=== PATIENT | female | born 1950 | race Caucasian/White ===

== ENCOUNTER 2024-03-24 05:28 | Emergency (ER) | payer OTHER, SELFPAY ==
[2024-03-24 05:30] VITALS: BP 162/84
--- NOTE | 2024-03-24 05:50 | EDRN ---
has cramps in R leg. Pt ambulates.
--- NOTE | 2024-03-24 06:30 | ED.GENMED ---
History of Present Illness
General
Chief Complaint: Musculo-Skeletal Complaint
Source: patient
Exam Limitations: none
Time Seen by Provider: 03/24/24 06:26
Travel History
Have you had any contact with someone who has COVID-19?: No
Do you have any symptoms of coronavirus? Fever > 100 degrees, chills, cough, shortness of breath, sore throat, loss of taste or smell, muscle aches, or headache?: No
History of Present Illness
History of Present Illness:
See MDM
Past History
Past History
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
ED Past Surgical History: Brain (Aneurysm coiling November 2019), Cholecystectomy and Other (liver transplant 2011)
Social History
Tobacco: Non-smoker
Personal:
Living: with family
Employment: Not employed
Family History
Family History: Other (Noncontributory)
Phy Exam
Physical Exam
Physical Exam:
See MDM
Course
Orders/Labs/Results
Orders:
Orders
03/24/24 06:30
Wrist, Right 3 Views [CR Wrist - Right Min 3 Views] Urgent
Comment:
Reason For Exam: Fall, R wrist pain
US Periph Venous LOWER Ext RT Urgent
Comment:
Reason For Exam: R calf pain
Vital Signs
Initial and Last Documented VS:
Initial Vital Signs
Temp Pulse Resp BP Pulse Ox
98 F 66 22 162/84 98
03/24/24 05:30 03/24/24 05:30 03/24/24 05:30 03/24/24 05:30 03/24/24 05:30
Last Documented Vital Signs
Temp Pulse Resp BP Pulse Ox
98 F 66 22 162/84 98
03/24/24 05:30 03/24/24 05:30 03/24/24 05:30 03/24/24 05:30 03/24/24 05:30
MDM/Problems Addressed
Differential Diagnosis Includes:
HPI and MDM Narrative:
73-year-old female presenting with right wrist pain and right calf pain. Patient had a fall 1 week ago and is worried because symptoms are still persistent. She thinks her right wrist is getting better but she is concerned about DVT in her right
leg. She denies any numbness or tingling
On exam, there is very mild tenderness to distal right radius. Will obtain x-ray. There is very mild tenderness to right calf without skin changes or edema. The distal extremity is otherwise neurovascularly intact. Will obtain ultrasound but
discussed likely musculoskeletal strain
Physical exam
General: Well appearing and non-toxic
HEENT: protecting airway
Neck: appears supple
CV: No evidence of cyanosis
Resp: No accessory muscle use
Abd: Non-distended
Extremities: No deformities. Mild tenderness to right distal radius. Mild tenderness right calf. Both extremities neurovascularly intact without skin changes or edema
Neuro: alert
Psych: Normal affect
Skin: Intact
Problems Addressed including Acute and Chronic Conditions affecting care:
1. Right wrist pain
Acuity: acute
Prognosis: stable
Details: Will obtain x-ray to rule out fracture
2. Right calf pain
Acuity: acute
Prognosis: stable
Details: Likely calf strain. Will obtain ultrasound rule DVT
Updates
Ultrasound negative for DVT. X-ray negative for fracture. Discussed return precautions
Differential Diagnosis (but not limited to): Calf strain, DVT, wrist fracture
Testing considered: Tib-fib x-ray but no bony tenderness
Drug therapy (if applicable): OTC meds, please see d/c instruction regarding Rx drugs
Amount and/or Complexity of Data Reviewed
Clinical info obtained from: Patient
External data reviewed: N/A
Labs I independently reviewed (but not limited to): N/A
Radiology: X-ray independently reviewed: Wrist x-ray negative for fracture
Pulse Ox: not hypoxic
EKG independently reviewed: N/A
Wood Cutter: N/A
Critical Care: N/A
Risk of Complication:
Social Determinants of health: Good social support
Discussed with other providers: N/A
Escalation of Care includes Admit/Obs: After being observed in the Emergency Department, pt stable for discharge.
Occasional wrong word or 'sound a like' substitutions may have occurred due to the inherent limitations of voice recognition software. Read the chart carefully and recognize, using context, where substitutions have occurred.
*Critical Care Note
Total Time (30-74mins, 75-104mins- exclusive of procedures): Not Applicable
ED Attending Note
-
Portions of this chart may have been created with voice recognition software.� Occasional wrong word or��sound alike� substitutions may have occurred due to the inherent limitations of voice recognition software.
Discharge Plan
Departure
Patient Disposition: Home (Routine Discharge)
Date of Disposition: 03/24/24
Time of Disposition: 07:41
Patient with high blood pressure during this ER visit?: Yes
Discharge Problem:
Strain of calf muscle
Instructions: Lower Extremity Muscle Strain (DC)
Prescriptions:
No Action
nifedipine 30 MG tablet extended release
30 mg PO DAILY
ergocalciferol (vitamin D2) 50,000 UNITS capsule
50,000 units PO AGUIRRE
mycophenolate sodium 360 MG tablet,delayed release (DR/EC)
720 mg PO BID
insulin detemir U-100 [Levemir FlexTouch U100 Insulin] 300 UNIT/3 ML insulin pen
48 unit SC HS
carvedilol 12.5 MG tablet
12.5 mg PO BID
pravastatin 40 MG tablet
40 mg PO DAILY
famotidine 20 MG tablet
20 mg PO DAILY
aspirin 81 MG tablet,chewable
81 mg PO DAILY
tacrolimus 0.5 MG capsule
0.5 mg PO BID
entecavir [Baraclude] 0.5 MG tablet
0.5 mg PO Q3D
loperamide 2 MG capsule
2 mg PO Q4HPRN PRN (Reason: diarrhea) 7 Days Qty: 30 0RF
dexamethasone 2 MG tablet
6 mg PO DAILY 7 Days Qty: 21 0RF
Rx Instructions:
next dose 5/1 AM
Referrals:
Genia Yun MD [Family Provider] -
Activity Restrictions/Additional Instructions:
Please return for any worsening symptoms.
You may return at any time if you have further concerns.
Please follow up with your doctor at the first available appointment, preferably this week.
Thank you for choosing [facility].
Interventions
Interventions:
*Risk Screen - Suicide Last Done: 03/24/24 05:30
*General Assessment Last Done: 03/24/24 05:44
*Neglect/Abuse Screening Last Done: 03/24/24 05:30
ED- Fall Risk Assessment Last Done: 03/24/24 05:44
*ED COVID-19 Vaccine History Last Done: 03/24/24 05:44
ED-Musculoskeletal Assessment Last Done: 03/24/24 05:44
Discharge Date and Time
Print Language: ROMANSH
[2024-03-24 08:15] VITALS: BP 167/83
== END 2024-03-24 08:15 | disposition home or self-care (01) ==
LOC: EMR 05:28
PROVIDERS: EMERGENCY PHYSICIAN Student in an Organized Health Care Education/Training Program; FAMILY PHYSICIAN Family Medicine
DX: S86.911A Strain of unspecified muscle(s) and tendon(s) at lower leg level, right leg, initial encounter (principal); W19.XXXA Unspecified fall, initial encounter; I12.9 Hypertensive chronic kidney disease with stage 1 through stage 4 chronic kidney disease, or unspecified chronic kidney disease; E11.22 Type 2 diabetes mellitus with diabetic chronic kidney disease; N18.9 Chronic kidney disease, unspecified; E78.00 Pure hypercholesterolemia, unspecified; Z79.4 Long term (current) use of insulin; Z90.49 Acquired absence of other specified parts of digestive tract; Z94.4 Liver transplant status
CPT/HCPCS: 99284; 73110; 93971

== ENCOUNTER 2024-12-15 21:43 | Emergency (ER) | payer OTHER, SELFPAY ==
[2024-12-15 21:47] VITALS: BP 148/82
[2024-12-15 22:15] LABS: % Eosinophils 1.8 % (0-6); % Immature Granulocytes 0.3 % (0-0.5); % Lymphocytes 43.4 % (20.5-51.1); % Monocytes 7.9 % (1.7-9.3); % Neutrophils 45.6 % (42.2-75.2); Absolute Basophils 0.1 10^3/uL (0-0.2); Absolute Eosinophils 0.1 10^3/uL (0-0.7); Absolute Lymphocytes 2.6 10^3/uL (1.2-3.4); Absolute Monocytes 0.5 10^3/uL (0.1-0.6); Absolute Neutrophils 2.8 10^3/uL (1.4-6.5); Hematocrit 43.6 % (37.0-47.0); Hemoglobin 14.2 g/dL (12.0-16.0); Mean Corp Hgb Conc. 32.6 g/dL (33.0-37.0); Mean Corpuscular Hgb 27.7 pg (27.0-31.0); Mean Corpuscular Volume 85.2 fL (81.0-99.0); Mean Platelet Volume 9.9 fL (7.4-10.4); Nucleated Red Blood Cells % 0 %; Platelet Count 192 10^3/uL (130-400); Red Blood Cell Count 5.12 10^6/uL (4.20-5.40); Red Cell Dist. Width 14.5 % (11.5-14.5)
[2024-12-15 22:35] LABS: ALT (SGPT) 14 U/L (0-35); AST (SGOT) 17 U/L (14-36); Albumin 3.7 g/dl (3.5-5.0); Alkaline Phosphatase 50 U/L (38-126); Blood Urea Nitrogen 18 mg/dl (7-17); Calcium 8.7 mg/dl (8.4-10.2); Carbon Dioxide 24 mmol/L (22-30); Chloride 101 mmol/L (98-107); Glucose 157 mg/dl (70-99); Magnesium 2.2 mg/dl (1.6-2.3); Potassium 4.2 mmol/L (3.5-5.1); Sodium 134 mmol/L (135-145); Total Bilirubin 1.1 mg/dl (0.2-1.3); Total Protein 6.6 g/dl (6.3-8.2); eGFR 36.34
[2024-12-15 22:39] LABS: Troponin I < 0.012 ng/ml
[2024-12-15 23:06] LABS: TSH Reflex To Free T4 1.83 uIU/ml (0.47-4.68)
[2024-12-16 01:45] VITALS: BMI 39.8
[2024-12-16 01:52] VITALS: BP 136/76
[2024-12-16 02:00] VITALS: BP 130/65
--- NOTE | 2024-12-16 02:06 | ED.GENMED ---
History of Present Illness
General
Chief Complaint: Dizziness
Source: patient
Exam Limitations: none
Time Seen by Provider: 12/16/24 01:31
Nursing documentation reviewed up to this point in time: agreed with
History of Present Illness
History of Present Illness:
74-year-old female with history of cardiomyopathy, HTN, HLD, IDDM, liver transplant 2012, brain aneurysm and fistula presents from home for low heart rate.
Patient was diagnosed with flu 4 days ago with N/V/D. Last emesis 3 days ago last diarrhea 2 days ago. Yesterday a.m. she had an episode where she felt lightheaded and faint but did not fall and did not faint, she held onto the counter to steady
herself and she had several similar episodes throughout the day. This morning because she felt lightheaded/dizzy she put her pulse ox on and states that it read '40' so she and her grandson with whom she lives was researching what could cause a low
heart rate and she was concerned she was dehydrated.
She held off on taking her Carvedilol.
She spoke with PCP on the phone today and told to hold Carvedilol again today and call her repair servicer tomorrow.
Past History
Past History
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
ED Past Surgical History: Brain (Aneurysm coiling November 2019), Cholecystectomy and Other (liver transplant 2011)
Social History
Tobacco: Non-smoker
Personal:
Living: with family
Employment: Not employed
Family History
Family History: Other (Noncontributory)
Review of Systems
Review of Systems
Allergies reviewed?: Yes
All Other Systems: ROS reviewed and negative except as documented in HPI and ROS
Constitutional: Denies fever or fatigue
EENT: Denies sore throat
Respiratory: Denies trouble breathing
Cardiac: Denies chest pain, diaphoresis, palpitations or syncope
ABD/GI: Denies abdominal pain, nausea, vomiting or diarrhea
: Denies dysuria, frequency or difficulty voiding
Skin: Denies no symptoms
Neurological: Reports dizzy (episodic lightheadedness/dizziness); Denies headache, weakness or numbness
Phy Exam
Physical Exam
Physical Exam:
GENERAL: No acute distress. A&Ox3.
CONSTITUTIONAL: Afebrile.
EYES: clear, conjunctivae normal
ENMT: moist mucus membranes, Pharynx nl
RESPIRATORY: Regular respirations, nonlabored, lungs clear.
CARDIOVASCULAR: Regular rate and rhythm, no murmurs, no rubs. Heart rate 50s and 60s on the bedside monitor, sinus
GI: Soft, nontender, normal BS
MUSCULOSKELETAL: Moves with ease. Well perfused. No edema
SKIN: Warm, dry, pink
PSYCH: Normal mood and affect. Well kept, interactive and appropriate
NEUROLOGIC: Awake, alert and oriented. No focal neurological deficits
Course
Orders/Labs/Results
Orders:
Orders
12/15/24 21:51
Electrocardiogram (*1) Urgent
Reason for Study: Vertigo / Dizzy
EKG- Treatment ONCE
12/15/24 22:06
Complete Blood Count/With Diff Urgent
Comprehensive Metabolic Panel Urgent
Magnesium Urgent
TSH Reflex To Free T4 Urgent
Troponin I Urgent
12/16/24 02:17
Orthostatic VS- Treatment ONCE
Abnormal Lab Results
12/15/24
22:06
MCHC 32.6 L g/dL
(33.0-37.0)
Sodium 134 L mmol/L
(135-145)
BUN 18 H mg/dl
(7-17)
Creatinine 1.5 H mg/dL
(0.6-1.0)
Glucose 157 H mg/dl
(70-99)
12/15/24 22:06
12/15/24 22:06
Vital Signs
Initial and Last Documented VS:
Initial Vital Signs
Temp Pulse Resp BP Pulse Ox
98.3 F 59 20 148/82 99
12/15/24 21:47 12/15/24 21:47 12/15/24 21:47 12/15/24 21:47 12/15/24 21:47
Last Documented Vital Signs
Temp Pulse Resp BP Pulse Ox
98.3 F 54 13 124/68 95
12/15/24 21:47 12/16/24 02:26 12/16/24 02:26 12/16/24 02:26 12/16/24 02:24
MDM/Problems Addressed
Differential Diagnosis Includes:
dehydration, residual flu symptoms, hypoglycemia,. side effect from Carvedilol
MDM/Problems Addressed:
74-year-old female with history of cardiomyopathy, HTN, HLD, IDDM, liver transplant 2012, brain aneurysm and fistula presents from home for low heart rate.
Patient was diagnosed with flu 4 days ago with N/V/D. Last emesis 3 days ago last diarrhea 2 days ago. Yesterday a.m. she had an episode where she felt lightheaded and faint but did not fall and did not faint, she held onto the counter to steady
herself and she had several similar episodes throughout the day. This morning because she felt lightheaded/dizzy she put her pulse ox on and states that it read '40' so she and her grandson with whom she lives was researching what could cause a low
heart rate and she was concerned she was dehydrated.
She held off on taking her Carvedilol.
She spoke with PCP on the phone today and told to hold Carvedilol again today and call her repair servicer tomorrow.
EKG NSR
CBC normal
CMP no clinically significant abnormality. Consistent with her chronic CKD
Troponin normal
TSH normal
2:00 a.m.
BP 130/65 HR 54
Orthostatics neg
Pt drank 500 ml castro pedro, no need for IVFs
2:45 a.m.
entire stay, HR went to 49 once, has been 50's and 60's at all other times
Orthostatics neg
Pt stable for discharge. To contact repair servicer tomorrow to discuss today's visit.
*EKG
EKG Intrepretation Date: 12/16/24
Interpretation: normal
Heart Rate: 62
Rate: normal
Rhythm: sinus
[place]: normal axis
Interval: normal interval
QRS Pattern: normal QRS
Ischemia: no ischemia
*Critical Care Note
Total Time (30-74mins, 75-104mins- exclusive of procedures): Not Applicable
ED Attending Note
-
Portions of this chart may have been created with voice recognition software.� Occasional wrong word or��sound alike� substitutions may have occurred due to the inherent limitations of voice recognition software.
Discharge Plan
Departure
Patient Disposition: Home (Routine Discharge)
Date of Disposition: 12/16/24
Time of Disposition: 02:37
Patient with high blood pressure during this ER visit?: No
Condition: Good
Discharge Problem:
Mild dehydration, Episodic lightheadedness
Instructions: Why Water Is Important to Health, Dehydration in adults - ED discharge instructions, Dizziness in adults - ED discharge instructions
Prescriptions:
No Action
nifedipine 30 MG tablet extended release
30 mg PO DAILY
ergocalciferol (vitamin D2) 50,000 UNITS capsule
50,000 units PO AGUIRRE
mycophenolate sodium 360 MG tablet,delayed release (DR/EC)
720 mg PO BID
insulin detemir U-100 [Levemir FlexTouch U100 Insulin] 300 UNIT/3 ML insulin pen
48 unit SC HS
carvedilol 12.5 MG tablet
12.5 mg PO BID
pravastatin 40 MG tablet
40 mg PO DAILY
famotidine 20 MG tablet
20 mg PO DAILY
aspirin 81 MG tablet,chewable
81 mg PO DAILY
tacrolimus 0.5 MG capsule
0.5 mg PO BID
entecavir [Baraclude] 0.5 MG tablet
0.5 mg PO Q3D
loperamide 2 MG capsule
2 mg PO Q4HPRN PRN (Reason: diarrhea) 7 Days Qty: 30 0RF
dexamethasone 2 MG tablet
6 mg PO DAILY 7 Days Qty: 21 0RF
Rx Instructions:
next dose 5/1 AM
Referrals:
Arnulfo Reis MD [Active] - Tomorrow
Genia Yun MD [Family Provider] -
Activity Restrictions/Additional Instructions:
As we discussed, nothing worrisome in your workup here tonight. You may be mildly dehydrated. Drink at least six 8 ounce glasses of water/fluid daily
Your symptoms are most likely due to your recent flu diagnosis
Your heart rate here tonight has been in the 50s and 60s the entire time
Your EKG is normal
Your blood work shows nothing worrisome. Discuss your creatinine level with your doctor.
Call your repair servicer tomorrow and discuss today's visit.
Interventions
Interventions:
*Risk Screen - Suicide Last Done: 12/16/24 02:52
*General Assessment Last Done: 12/15/24 21:47
*Neglect/Abuse Screening Last Done: 12/16/24 02:52
ED- Fall Risk Assessment Last Done: 12/16/24 01:46
*Nursing Disposition Last Done: 12/16/24 02:52
ED- Neurological Assessment Last Done: 12/16/24 01:46
ED- Cardiac Assessment Last Done: 12/16/24 01:58
ED Swallowing Screen Last Done: 12/16/24 01:46
Discharge Date and Time
Discharge Date/Time: 12/16/24 02:53
Print Language: SPANISH
[2024-12-16 02:22] VITALS: BP 121/79
[2024-12-16 02:24] VITALS: BP 133/84
[2024-12-16 02:25] VITALS: BP 121/79; BP 124/68; BP 133/84; PULSE 56; PULSE 58
[2024-12-16 02:26] VITALS: BP 124/68
== END 2024-12-16 02:53 | disposition home or self-care (01) ==
LOC: EMR 21:43
PROVIDERS: Emergency Medicine; EMERGENCY PHYSICIAN Student in an Organized Health Care Education/Training Program; FAMILY PHYSICIAN Family Medicine
DX: E86.0 Dehydration (principal); R42 Dizziness and giddiness; I12.9 Hypertensive chronic kidney disease with stage 1 through stage 4 chronic kidney disease, or unspecified chronic kidney disease; E11.22 Type 2 diabetes mellitus with diabetic chronic kidney disease; N18.9 Chronic kidney disease, unspecified; E78.00 Pure hypercholesterolemia, unspecified; I42.9 Cardiomyopathy, unspecified; Z79.4 Long term (current) use of insulin; Z94.4 Liver transplant status; Z90.49 Acquired absence of other specified parts of digestive tract
CPT/HCPCS: 99284; 80053; 83735; 84443; 84484; 85025; 93005

== ENCOUNTER 2025-01-12 20:59 | Emergency (ER) | payer OTHER, SELFPAY ==
[2025-01-12 21:01] VITALS: BP 132/81
[2025-01-12 21:14] LABS: % Basophils 0.7 % (0-2); % Eosinophils 1.7 % (0-6); % Immature Granulocytes 0.5 % (0-0.5); % Lymphocytes 26.9 % (20.5-51.1); % Monocytes 7.4 % (1.7-9.3); % Neutrophils 62.8 % (42.2-75.2); Absolute Basophils 0.1 10^3/uL (0-0.2); Absolute Eosinophils 0.2 10^3/uL (0-0.7); Absolute Immature Granulocytes 0.1 10^3/uL (0-0.05); Absolute Lymphocytes 2.5 10^3/uL (1.2-3.4); Absolute Monocytes 0.7 10^3/uL (0.1-0.6); Absolute Neutrophils 5.9 10^3/uL (1.4-6.5); Hematocrit 47.3 % (37.0-47.0); Hemoglobin 15.7 g/dL (12.0-16.0); Mean Corp Hgb Conc. 33.2 g/dL (33.0-37.0); Mean Corpuscular Hgb 27.9 pg (27.0-31.0); Mean Platelet Volume 9.9 fL (7.4-10.4); Nucleated Red Blood Cells % 0 %; Platelet Count 211 10^3/uL (130-400); Red Blood Cell Count 5.63 10^6/uL (4.20-5.40); Red Cell Dist. Width 14.4 % (11.5-14.5); White Blood Cell Count 9.4 10^3/uL (4.8-10.8)
[2025-01-12 21:31] LABS: ALT (SGPT) 13 U/L (0-35); AST (SGOT) 15 U/L (14-36); Albumin 4.8 g/dl (3.5-5.0); Alkaline Phosphatase 68 U/L (38-126); Blood Urea Nitrogen 18 mg/dl (7-17); Calcium 9.9 mg/dl (8.4-10.2); Carbon Dioxide 24 mmol/L (22-30); Chloride 97 mmol/L (98-107); Glucose 216 mg/dl (70-99); Potassium 4.6 mmol/L (3.5-5.1); Sodium 134 mmol/L (135-145); Total Bilirubin 1.5 mg/dl (0.2-1.3); Total Protein 7.8 g/dl (6.3-8.2)
--- NOTE | 2025-01-12 22:11 | ED.GENMED ---
History of Present Illness
General
Chief Complaint: Heart Rate Problem
Source: patient
Exam Limitations: none
Time Seen by Provider: 01/12/25 21:28
Nursing documentation reviewed up to this point in time: agreed with
Past History
Past History
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
ED Past Surgical History: Brain (Aneurysm coiling November 2019), Cholecystectomy and Other (liver transplant 2011)
Social History
Tobacco: Non-smoker
Personal:
Living: with family
Employment: Not employed
Family History
Family History: Other (Noncontributory)
Review of Systems
Review of Systems
Allergies reviewed?: Yes
All Other Systems: ROS reviewed and negative except as documented in HPI and ROS
Constitutional: Reports no symptoms
EENT: Reports other (blurred vision)
Respiratory: Reports no symptoms
Cardiac: Reports palpitations
ABD/GI: Reports no symptoms
: Reports no symptoms
Musculoskeletal: Reports no symptoms
Skin: Reports no symptoms
Neurological: Reports no symptoms
Psychiatric: Reports no symptoms
Phy Exam
General Physical Exam
General Presentation: well appearing and no apparent distress
General age: appears stated age
General Skin: warm and dry
General Habitus: normal
General Mental: alert
Cardiovascular Exam
Cardiovascular Exam: regular rate/rhythm
Pulmonary Exam
Pulmonary Exam: lungs clear and no respiratory distress
Gastrointestinal Exam
Gastrointestinal Exam: normal bowel sounds, non tender, soft and no organomegaly
Neurological Exam
Neurological Exam: alert, oriented x3, CN II-XII intact, no motor deficits, no sensory deficits and speech normal
Musculoskeletal Exam
Musculoskeletal Exam: full ROM, edema (Right calf and ankle swelling) and neuro vasc intact
Skin Exam
Skin Exam: normal color, warm/dry and no rash
Psychiatric Exam
Psychiatric Exam: normal mood/affect
Course
Orders/Labs/Results
Orders:
Orders
01/12/25 21:00
Electrocardiogram (*1) Urgent
Reason for Study: Tachycardia
EKG- Treatment ONCE
01/12/25 21:08
CMP [Comprehensive Metabolic Panel] Urgent
Complete Blood Count/With Diff Urgent
01/12/25 22:11
CT Head W/o Iv Contrast Urgent
Comment:
Reason For Exam: vision changes
US Periph Venous LOWER Ext RT Urgent
Comment:
Reason For Exam: RLE swelling
01/12/25 22:20
Troponin I Urgent
Abnormal Lab Results
01/12/25
21:08
RBC 5.63 H 10^6/uL
(4.20-5.40)
Hct 47.3 H %
(37.0-47.0)
Abs Immat Gran (auto) 0.1 H 10^3/uL
(0-0.05)
Absolute Monos (auto) 0.7 H 10^3/uL
(0.1-0.6)
Sodium 134 L mmol/L
(135-145)
Chloride 97 L mmol/L
(98-107)
BUN 18 H mg/dl
(7-17)
Creatinine 1.2 H mg/dL
(0.6-1.0)
Glucose 216 H mg/dl
(70-99)
Total Bilirubin 1.5 H mg/dl
(0.2-1.3)
01/12/25 21:08
01/12/25 21:08
Vital Signs
Initial and Last Documented VS:
Initial Vital Signs
Temp Pulse Resp BP Pulse Ox
97.9 F 108 20 132/81 97
01/12/25 21:01 01/12/25 21:01 01/12/25 21:01 01/12/25 21:01 01/12/25 21:01
Last Documented Vital Signs
Temp Pulse Resp BP Pulse Ox
97.9 F 81 22 136/72 94
01/12/25 21:01 01/12/25 23:21 01/12/25 23:21 01/12/25 23:21 01/12/25 23:21
ED Attending Note
-
Portions of this chart may have been created with voice recognition software.� Occasional wrong word or��sound alike� substitutions may have occurred due to the inherent limitations of voice recognition software.
Discharge Plan
Departure
Patient Disposition: Home (Routine Discharge)
Date of Disposition: 01/12/25
Time of Disposition: 23:22
Patient with high blood pressure during this ER visit?: No
Condition: Good
Covid-19: Not Applicable
Discharge Problem:
Palpitations
Instructions: Palpitations (DC)
Prescriptions:
No Action
nifedipine 30 MG tablet extended release
30 mg PO DAILY
ergocalciferol (vitamin D2) 50,000 UNITS capsule
50,000 units PO AGUIRRE
mycophenolate sodium 360 MG tablet,delayed release (DR/EC)
720 mg PO BID
insulin detemir U-100 [Levemir FlexTouch U100 Insulin] 300 UNIT/3 ML insulin pen
48 unit SC HS
carvedilol 12.5 MG tablet
12.5 mg PO BID
pravastatin 40 MG tablet
40 mg PO DAILY
famotidine 20 MG tablet
20 mg PO DAILY
aspirin 81 MG tablet,chewable
81 mg PO DAILY
tacrolimus 0.5 MG capsule
0.5 mg PO BID
entecavir [Baraclude] 0.5 MG tablet
0.5 mg PO Q3D
loperamide 2 MG capsule
2 mg PO Q4HPRN PRN (Reason: diarrhea) 7 Days Qty: 30 0RF
dexamethasone 2 MG tablet
6 mg PO DAILY 7 Days Qty: 21 0RF
Rx Instructions:
next dose 5/1 AM
Referrals:
Genia Yun MD [Family Provider] - Keep scheduled appt
Activity Restrictions/Additional Instructions:
Return to the emergency department immediately for any changes in/worsening of your symptoms.
Interventions
Interventions:
*Risk Screen - Suicide Last Done: 01/12/25 21:01
*General Assessment Last Done: 01/12/25 21:01
*Neglect/Abuse Screening Last Done: 01/12/25 21:01
*ED- Fall Risk Assessment Last Done: 01/12/25 23:22
*ED COVID-19 Vaccine History Last Done: 01/12/25 23:22
*Nursing Disposition Last Done: 01/12/25 23:42
ED- Pulmonary Assessment Last Done: 01/12/25 22:10
ED- Neurological Assessment Last Done: 01/12/25 22:10
ED- Cardiac Assessment Last Done: 01/12/25 22:10
ED Swallowing Screen Last Done: 01/12/25 22:10
Discharge Date and Time
Discharge Date/Time: 01/12/25 23:43
Print Language: IRAQI
[2025-01-12 22:23] VITALS: BMI 41.2
[2025-01-12 22:51] LABS: Troponin I < 0.012 ng/ml
[2025-01-12 23:21] VITALS: BP 136/72
== END 2025-01-12 23:43 | disposition home or self-care (01) ==
LOC: EMR 20:59
PROVIDERS: Emergency Medicine; Nurse Practitioner; EMERGENCY PHYSICIAN Emergency Medicine; FAMILY PHYSICIAN Family Medicine
DX: R00.2 Palpitations (principal); R22.41 Localized swelling, mass and lump, right lower limb; E11.22 Type 2 diabetes mellitus with diabetic chronic kidney disease; I12.9 Hypertensive chronic kidney disease with stage 1 through stage 4 chronic kidney disease, or unspecified chronic kidney disease; N18.9 Chronic kidney disease, unspecified; E78.00 Pure hypercholesterolemia, unspecified; Z79.4 Long term (current) use of insulin; Z94.4 Liver transplant status; Z90.49 Acquired absence of other specified parts of digestive tract
CPT/HCPCS: 99284; 70450; 80053; 84484; 85025; 93005; 93971